=== PATIENT | male | born 1950 | race Caucasian/White ===

== ENCOUNTER 2016-12-28 23:58 | Inpatient (IN) | payer OTHER ==
[~2016-12-28] VITALS: Ht 177.8 cm; Wt 115.7 kg
[2016-12-29 01:09] LABS: Basophils # (auto) 0 uL; Basophils % (auto) 0.7 % (0.0-2.0); Eosinophils # (auto) 0.2 uL; Eosinophils % (auto) 4.1 % (0.0-7.0); Hematocrit 38.4 % (41.0-53.0); Hemoglobin 12.9 g/dL (13.5-17.5); Lymphocytes % (auto) 21.1 % (10.0-50.0); Mean Corpuscular Hemoglobin 29.6 pg (28.0-32.0); Mean Corpuscular Hgb Conc. 33.5 g/dL (32.0-36.0); Mean Corpuscular Volume 88.2 fL (80.0-100.0); Mean Platelet Volume 8.7 fL (6.9-10.8); Monocytes # (auto) 0.5 uL; Monocytes % (auto) 10.3 % (0.0-12.0); Neutrophils # (auto) 3.1 uL; Neutrophils % (auto) 63.8 % (37.0-80.0); Platelet Count (auto) 135 10^3/uL (140-450); Red Cell Distribution Width 14.1 % (11.8-14.3); White Blood Cell 4.9 10^3/uL (4.4-10.8)
[2016-12-29 01:39] LABS: Albumin 3.5 g/dL (3.4-5.0); Anion Gap 8 (5-15); Aspartate Aminotransferase 65 U/L (15-37); Blood Urea Nitrogen 28 mg/dL (7-18); Calcium 8.7 mg/dL (8.5-10.1); Carbon Dioxide 26 mmol/L (21-32); Chloride 107 mmol/L (98-107); GFR African American 85 mL/min; GFR Non-African American 70 mL/min; Glucose 131 mg/dL (74-106); Magnesium 2.2 mg/dL (1.6-2.6); Potassium 4.3 mmol/L (3.5-5.1); Sodium 141 mmol/L (136-145)
[2016-12-29 01:42] LABS: INR 2.43 (0.9-1.15); Partial Thromboplastin Time 44.7 sec (22.64-33.71); Prothrombin Time 26.7 sec (9.37-12.3)
[2016-12-29 01:47] LABS: Alkaline Phosphatase 89 U/L (45-117); Bilirubin, Total 0.8 mg/dL (0.2-1.0); Total Protein 7.2 g/dL (6.4-8.2)
[2016-12-29] MEDS ORDERED: MORPHINE SULF INJ 2 MG/ML SYRINGE 1ML IV ONE (02:15)
[2016-12-29] MEDS ORDERED: ONDANSETRON HCL 4 MG/2 ML VIAL IV ONE (02:15)
[2016-12-29 03:12] LABS: Amylase 38 U/L (25-115)
[2016-12-29] MEDS ORDERED: MORPHINE SULF INJ 2 MG/ML SYRINGE 1ML IV PRN (07:30)
[2016-12-29] MEDS ORDERED: TEMAZEPAM 15 MG CAP PO PRN (07:30)
[2016-12-29] MEDS ORDERED: ACETAMINOPHEN 325 MG TAB PO PRN (07:30)
[2016-12-29] MEDS ORDERED: ONDANSETRON HCL 4 MG/2 ML VIAL IV PRN (07:30)
[2016-12-29] MEDS ORDERED: HYDROcodone-ACET 5/325MG TAB PO PRN (07:30)
[2016-12-29] MEDS ORDERED: cefTRIAXone 1GM/50ML D5W 50 ML IV SCH (09:00)
[2016-12-29] MEDS ORDERED: SIMV-13 PO (09:04)
[2016-12-29] MEDS ORDERED: CARV12.544 PO (09:08)
[2016-12-29] MEDS ORDERED: WARF1TAB PO (09:08)
[2016-12-29] MEDS ORDERED: BENA40TA7 PO (09:08)
[2016-12-29] MEDS ORDERED: FURO40TA4 PO (09:13)
[2016-12-29] MEDS ORDERED: OMEP20CA74 PO (09:13)
[2016-12-29] MEDS ORDERED: TIZA2TAB3 PO (09:13)
[2016-12-29] MEDS ORDERED: POTA10TA51 PO (09:17)
[2016-12-29] MEDS ORDERED: ALPR0.254 PO (09:17)
[2016-12-29] MEDS ORDERED: BENAZEPRIL HCL 10 MG TAB PO SCH (10:00)
[2016-12-29] MEDS ORDERED: FUROSEMIDE 40 MG TAB PO SCH (10:00)
[2016-12-29] MEDS ORDERED: CITALOPRAM HYDROBR 20 MG TAB PO SCH (10:00)
[2016-12-29] MEDS ORDERED: FAMOTIDINE 20 MG TAB PO SCH (10:00)
[2016-12-29] MEDS ORDERED: CARVEDILOL 12.5 MG TAB PO SCH (10:00)
[2016-12-29 10:33] VITALS: BP 132/80
[2016-12-29 13:00] VITALS: BP 128/81
[2016-12-29 15:17] VITALS: BP 128/80
[2016-12-29] MEDS ORDERED: WARFARIN SODIUM 2.5 MG TAB PO ONE (17:00)
== END 2016-12-29 15:48 | disposition short-term general hospital (02) | DRG 445 ==
LOC: ER 23:58 → OVERFLOW 23:59 → TELE-E-ADS 12-29 10:08 → EAST 12-29 11:27
PROVIDERS: ADMIT Nurse Practitioner; ATTEND Internal Medicine Geriatric Medicine
DX: K81.0 Acute cholecystitis (principal); D68.9 Coagulation defect, unspecified; I50.9 Heart failure, unspecified; I11.0 Hypertensive heart disease with heart failure; I48.2 Chronic atrial fibrillation; E11.9 Type 2 diabetes mellitus without complications; E78.5 Hyperlipidemia, unspecified; K82.8 Other specified diseases of gallbladder; Z95.0 Presence of cardiac pacemaker
CPT/HCPCS: 36415; 71010; 74176; 80053; 82150; 83690; 83735; 83880; 84443; 84484; 85025; 85379; 85610; 85730; 93005; 94761; 96374; 96375; J0696; J2405